=== PATIENT | male | born 1980 | race African-American/Black ===

== ENCOUNTER 2025-03-13 08:26 | Inpatient (IN) | payer SELFPAY ==
[2025-03-13 09:30] LABS: Hematocrit 37.0 % (38.8-50.0); Hemoglobin 10.4 g/dL (13.5-17.5); Mean Corpuscular Hemoglobin 19.9 pg (27.0-33.0); Mean Corpuscular Volume 70.9 fL (81.2-95.1); Platelet Count 386 10x3/uL (150-450); Red Blood Cell (RBC) Count 5.22 10x6/uL (4.32-5.72); White Blood Cell (WBC) Count 8.00 10x3/uL (3.5-10.5)
[2025-03-13 09:31] LABS: #Basophils 0.10 10x3/uL (0.0-0.2); #Eosinophils 0.04 10x3/uL (0.0-0.5); #Monocytes 0.60 10x3/uL (0.0-1.1); #Neutrophils 6.04 10x3/uL (1.5-8.4); %Basophils 1.3 % (0.0-2.0); %Eosinophils 0.5 % (0.0-6.0); %Lymphocytes 15.1 % (18.0-47.0); %Monocytes 7.5 % (0.0-10.0); %Neutrophils 75.5 % (40.0-75.0)
[2025-03-13 09:47] LABS: Cocaine Metabolite Screen Negative (Negative); THC/Cannabinoid Screen PRELIM POSITIVE (Negative); Tricyclic Screen Negative (Negative)
[2025-03-13 09:48] LABS: ALT (SGPT) 22 U/L (Less than 45); AST (SGOT) 21 U/L (11-34); Albumin 4.3 g/dL (3.1-4.5); Alkaline Phosphatase 72 U/L (40-110); Anion Gap 12 mmol/L (10-20); BUN (Urea Nitrogen) 16 mg/dL (8.9-20.6); Bilirubin, Total 0.2 mg/dL (0.3-1.2); Calc. Creatinine Clearance 0 mL/min (70-130); Calcium 8.7 mg/dL (7.8-10.44); Carbon Dioxide 23 mmol/L (22-29); Chloride 108 mmol/L (98-107); Globulin 3.7 g/dL (2.4-3.5); Glucose 94 mg/dL (70-105); Potassium 4.1 mmol/L (3.5-5.1); Sodium 139 mmol/L (136-145)
[2025-03-13 09:53] LABS: Acetaminophen Less than 10 mcg/mL (Less than 10); D-Dimer Test 1.01 mcg/mL (0.19-0.50); INR-International Normal Ratio 0.9; PTT 24.1 sec (22.0-33.0); Prothrombin Time 10.0 sec (9.5-12.1); Salicylate Less than 8.0 mg/dL (Less than 8.0)
[2025-03-13 09:55] LABS: Troponin I Less than 0.010 ng/mL (< 0.028)
[2025-03-13 10:16] LABS: Microcytosis SLIGHT = 6-15 cells (100X) (0-5/hpf); Ovalocytes SLIGHT = 2-5 cells (100X) (0-1/hpf); Polychromasia SLIGHT = 2-3 cells (100X) (0-2/hpf)
[2025-03-13 10:17] LABS: Platelet Adequacy Comment Appears Adequate
[2025-03-13] MEDS ORDERED: Iopamidol 370 76% 100 ML VIAL ONE (11:27)
[2025-03-13] MEDS ORDERED: Melatonin 3 MG TAB PO PRN (11:49)
[2025-03-13] MEDS ORDERED: hydrALAZINE 20 MG/ML VIAL SLOW IVP PRN (11:49)
[2025-03-13] MEDS ORDERED: Senokot S 8.6-50 MG TAB PO PRN (11:49)
[2025-03-13 13:06] VITALS: BMI 22.8
[2025-03-13] MEDS: Aspirin 81 mg Enteric Coated Tablet PO SCH ×2 (15:05)
[2025-03-13] MEDS: Famotidine 20 MG TAB PO SCH (20:06)
[2025-03-14 03:48] LABS: #Basophils 0.10 10x3/uL (0.0-0.2); #Eosinophils 0.13 10x3/uL (0.0-0.5); #Monocytes 0.71 10x3/uL (0.0-1.1); #Neutrophils 5.30 10x3/uL (1.5-8.4); %Basophils 1.2 % (0.0-2.0); %Eosinophils 1.5 % (0.0-6.0); %Lymphocytes 26.0 % (18.0-47.0); %Monocytes 8.4 % (0.0-10.0); %Neutrophils 62.7 % (40.0-75.0); Hematocrit 35.6 % (38.8-50.0); Hemoglobin 10.1 g/dL (13.5-17.5); Mean Corpuscular Hemoglobin 20.1 pg (27.0-33.0); Mean Corpuscular Volume 70.8 fL (81.2-95.1); Platelet Count 379 10x3/uL (150-450); Red Blood Cell (RBC) Count 5.03 10x6/uL (4.32-5.72); White Blood Cell (WBC) Count 8.46 10x3/uL (3.5-10.5)
[2025-03-14 04:07] LABS: Cardiac Risk 2.8 (Less than 4.5); Cholesterol 202.0 mg/dl (< 200 Desired); HDL Cholesterol 72.0 mg/dL (>60 Neg Risk); LDL Cholesterol, Calculated 114.0 mg/dL; Triglycerides 79.0 mg/dL (Less than 150)
[2025-03-14] MEDS: Enoxaparin 40 MG (0.4 mL) SYRINGE SC SCH (09:28)
[2025-03-14] MEDS: Acetaminophen 325 MG TAB PO PRN (09:29)
[2025-03-14] MEDS ORDERED: Iopamidol 300 61% 100 ML VIAL FS ONE (11:38)
[2025-03-14 17:00] VITALS: BP 135/69; TEMP 98.5
== END 2025-03-14 17:03 | disposition home or self-care (01) | DRG 65 ==
LOC: CSHERS 08:26 → CSHTELE 11:14 → OBSVTOIN 03-14 11:23
PROVIDERS: ADMIT Internal Medicine; ATTEND Internal Medicine
DX: I63.9 Cerebral infarction, unspecified (principal); G81.91 Hemiplegia, unspecified affecting right dominant side; I10 Essential (primary) hypertension; F19.10 Other psychoactive substance abuse, uncomplicated; E78.5 Hyperlipidemia, unspecified; R29.700 NIHSS score 0
CPT/HCPCS: 36415; 70450; 70496; 70498; 70551; 71045; 71275; 80053; 80061; 80306; 80307; 84484; 85025; 85379; 85610; 85730; 93005; 93306; 96372; G0378; J1650; Q9967

== ENCOUNTER 2025-03-17 21:05 | Emergency (ER) | payer SELFPAY ==
[2025-03-17 21:57] LABS: #Basophils 0.11 10x3/uL (0.0-0.2); #Eosinophils 0.07 10x3/uL (0.0-0.5); #Monocytes 0.60 10x3/uL (0.0-1.1); #Neutrophils 5.99 10x3/uL (1.5-8.4); %Basophils 1.3 % (0.0-2.0); %Eosinophils 0.8 % (0.0-6.0); %Lymphocytes 21.4 % (18.0-47.0); %Monocytes 6.9 % (0.0-10.0); %Neutrophils 69.4 % (40.0-75.0); Hematocrit 34.2 % (38.8-50.0); Hemoglobin 9.8 g/dL (13.5-17.5); Mean Corpuscular Hemoglobin 20.0 pg (27.0-33.0); Mean Corpuscular Volume 69.8 fL (81.2-95.1); Platelet Count 360 10x3/uL (150-450); Red Blood Cell (RBC) Count 4.90 10x6/uL (4.32-5.72); White Blood Cell (WBC) Count 8.64 10x3/uL (3.5-10.5)
[2025-03-17 22:06] LABS: INR-International Normal Ratio 1.0; PTT 23.6 sec (22.0-33.0); Prothrombin Time 11.0 sec (9.5-12.1)
[2025-03-17 22:09] LABS: ALT (SGPT) 17 U/L (Less than 45); AST (SGOT) 20 U/L (11-34); Albumin 4.0 g/dL (3.1-4.5); Alkaline Phosphatase 59 U/L (40-110); Anion Gap 10 mmol/L (10-20); BUN (Urea Nitrogen) 15 mg/dL (8.9-20.6); Bilirubin, Total 0.2 mg/dL (0.3-1.2); Calc. Creatinine Clearance 0 mL/min (70-130); Calcium 8.8 mg/dL (7.8-10.44); Carbon Dioxide 27 mmol/L (22-29); Chloride 103 mmol/L (98-107); Globulin 3.5 g/dL (2.4-3.5); Glucose 110 mg/dL (70-105); Magnesium 1.9 mg/dL (1.6-2.6); Potassium 4.1 mmol/L (3.5-5.1); Sodium 136 mmol/L (136-145)
== END 2025-03-17 22:24 ==
LOC: CSHERS 21:05
DX: I10 Essential (primary) hypertension (principal); Z87.891 Personal history of nicotine dependence; Z86.73 Personal history of transient ischemic attack (TIA), and cerebral infarction without residual deficits
CPT/HCPCS: 36415; 80053; 83735; 85025; 85610; 85730; 93005; 99285